=== PATIENT | male | born 1970 | race Caucasian/White ===

== ENCOUNTER 2018-10-12 04:01 | Emergency (ER) | payer OTHER ==
[2018-10-12] MEDS: HYDROCODONE/APAP (5/325) TAB PO (05:01)
== END 2018-10-12 06:31 | disposition home or self-care (01) ==
LOC: FTE 04:01
DX: G56.01 Carpal tunnel syndrome, right upper limb (principal)
CPT/HCPCS: 73110; 73110-RT; 99283